=== PATIENT | male | born 2005 | race Caucasian/White ===

== ENCOUNTER 2024-07-27 14:59 | Emergency (ER) | payer OTHER, SELFPAY ==
[2024-07-27 15:01] VITALS: BP 125/76
--- NOTE | 2024-07-27 15:11 | ED.GENMED ---
History of Present Illness
General
Chief Complaint: Allergic Reaction
Source: patient and family
Time Seen by Provider: 07/27/24 15:05
History of Present Illness
History of Present Illness:
18yoM with a history of peanut and tree nut allergies presenting with his parents for evaluation of an allergic reaction. Patient was eating a cookie about 45 minutes prior to arrival. Shortly afterwards, he started to develop a diffuse itchy rash
as well as throat discomfort. He reports pain with breathing. He took 50 mg Benadryl but vomited shortly afterwards. He has had 2 episodes of vomiting prior to arrival. He is currently feeling mildly improved. He has a history of allergies to
nuts but has never required epinephrine previously.
Phy Exam
General Physical Exam
General Presentation: mild distress
General age: appears stated age
General Skin: warm and dry
General Habitus: normal
General Mental: alert
ENT Exam
ENT Exam: normocephalic
Additional ENT: No oropharyngeal swelling
Cardiovascular Exam
Cardiovascular Exam: regular rate/rhythm
Pulmonary Exam
Pulmonary Exam: lungs clear, no respiratory distress, no rales, no crackles and no rhonchi
Neurological Exam
Neurological Exam: alert
Wendy Coma Scale
Eye Opening: Spontaneous
Verbal Response: Oriented
Motor Response: Obeys Commands
GCS Total Score: 15
Skin Exam
Skin Exam: warm/dry and other (Diffuse urticaria and facial flushing noted)
Psychiatric Exam
Psychiatric Exam: normal mood/affect
Course
Orders/Labs/Results
Orders:
Orders
07/27/24 15:08
0.9% Sodium Chloride 1000 ml [Nss] 1,000 ml IV BOLUS
Dexamethasone Sod Phosphate [Decadron] 10 mg IV NOW STA
Diphenhydramine [Benadryl] 25 mg IV NOW STA
EPINEPHrine PF [Adrenalin] 0.5 mg IM NOW STA
Famotidine [Pepcid] 20 mg IV NOW STA
07/27/24 15:10
Cardiac Monitoring- Treatment ONCE
Vital Signs
Initial and Last Documented VS:
Initial Vital Signs
Temp Pulse Resp BP Pulse Ox
98 F 90 18 125/76 98
07/27/24 15:01 07/27/24 15:01 07/27/24 15:01 07/27/24 15:01 07/27/24 15:01
Last Documented Vital Signs
Temp Pulse Resp BP Pulse Ox
97.5 F 72 20 120/76 99
07/27/24 18:21 07/27/24 18:21 07/27/24 18:21 07/27/24 18:21 07/27/24 18:21
MDM/Problems Addressed
Differential Diagnosis Includes:
18yoM here for an allergic reaction. Started shortly after eating a cookie. Known allergy to nuts. C/o rash, SOB, vomiting. Patient is in mild distress on exam. Vital signs stable. Diffuse urticaria noted with facial flushing. No oropharyngeal
swelling noted. No wheezing or stridor.
Initial ED plan: Presentation consistent with anaphylaxis. IM epinephrine ordered as well as IV Benadryl, Pepcid, Decadron, and fluid bolus.
*Critical Care Note
Total Time (30-74mins, 75-104mins- exclusive of procedures): Not Applicable
Update Note
Update Note:
Symptoms resolved shortly after epinephrine administration. He was observed for additional 3 hours with no evidence of recurrence. Patient is stable for discharge. EpiPen prescription provided. Patient is from [place] and is returning home
tomorrow. He was advised to follow-up with his PCP. Strict ED return precautions discussed. He was discharged in stable condition with his parents.
ED Attending Note
-
Portions of this chart may have been created with voice recognition software.� Occasional wrong word or��sound alike� substitutions may have occurred due to the inherent limitations of voice recognition software.
Discharge Plan
Departure
Patient Disposition: Home (Routine Discharge)
Date of Disposition: 07/27/24
Time of Disposition: 18:03
Patient with high blood pressure during this ER visit?: No
Discharge Problem:
Anaphylaxis
Instructions: Anaphylaxis - Discharge instructions
Prescriptions:
New
epinephrine [EpiPen] 0.3 mg/0.3 mL auto-injector
0.3 mg IM .STAT PRN (Reason: anaphylaxis) Qty: 2 0RF
Referrals:
NONE,* [Family Provider] -
Activity Restrictions/Additional Instructions:
Take Benadryl 25mg every 6 hours as needed. Administer EpiPen if you develop trouble swallowing/breathing.
Please follow-up with your family doctor.
Return to the ER with any worsening symptoms or if you have to administer the EpiPen.
Interventions
Interventions:
*Risk Screen - Suicide Last Done: 07/27/24 15:29
*General Assessment Last Done: 07/27/24 15:29
*Neglect/Abuse Screening Last Done: 07/27/24 15:29
ED- Fall Risk Assessment Last Done: 07/27/24 15:29
*ED COVID-19 Vaccine History Last Done: 07/27/24 15:29
*Nursing Disposition Last Done: 07/27/24 18:21
ED- Cardiac Assessment Last Done: 07/27/24 15:29
ED- Pulmonary Assessment Last Done: 07/27/24 15:29
ED-Skin Assessment Last Done: 07/27/24 15:29
Discharge Date and Time
Discharge Date/Time: 07/27/24 18:23
Print Language: JORDANIAN
[2024-07-27] MEDS: ADRENALIN 0.5 MG IM (15:13)
[2024-07-27] MEDS: PEPCID 20 MG IV (15:18)
[2024-07-27] MEDS: BENADRYL 25 MG IV (15:19)
[2024-07-27] MEDS: DECADRON 10 MG IV (15:20)
[2024-07-27] MEDS: NSS 1000 IV (15:21)
[2024-07-27 15:23] VITALS: BMI 28.3
[2024-07-27 16:00] VITALS: BP 131/52
[2024-07-27 18:21] VITALS: BP 120/76
== END 2024-07-27 18:23 | disposition home or self-care (01) ==
LOC: EMR 14:59
PROVIDERS: EMERGENCY PHYSICIAN Emergency Medicine
DX: T78.2XXA Anaphylactic shock, unspecified, initial encounter (principal); X58.XXXA Exposure to other specified factors, initial encounter
CPT/HCPCS: 99282; 96374; 96375; 96372; 96361